=== PATIENT | male | born 2000 | race African-American/Black ===

== ENCOUNTER 2023-07-29 11:13 | Emergency (ER) | payer MEDICAID, SELFPAY ==
[2023-07-29 11:13] VITALS: BP 117/92; PULSE 70; RESP 17; TEMP 36.6; O2SAT 99
--- NOTE | 2023-07-29 11:22 | ECG_ITS ---
SEE SCANNED COPY FOR CONFIRMED REPORT MTDD
--- NOTE | 2023-07-29 11:23 | ED.ALLEREA ---
HPI - Allergic Reaction General Stated complaint: ALLERGIC REACTION Time Seen by Provider: 07/29/23 11:22 Source: patient and EMS Mode of arrival: ambulatory Limitations: no limitations History of Present Illness HPI narrative: this is a 23-year-old male with no significant past medical history presents via EMS after he felt that he had an allergic reaction and having some bumps on the left forearm, felt like he had palpitations and was lightheaded initially did receive Benadryl via EMS, currently no shortness of breath no chest pain no nausea vomiting no abdominal pain. MD complaint: allergic reaction Onset (ago): hour(s) Exposure: unknown Related Data Home Medications Medication Instructions Recorded Confirmed No Home Medications 07/29/23 07/29/23 Allergies Allergy/AdvReac Type Severity Reaction Status Date / Time No Known Allergies Allergy Verified 07/29/23 11:29 Review of Systems Review of Systems: All systems reviewed & are unremarkable except as noted in HPI and below PMFSH Past Medical History Medical History Patient denies medical problems Exam Const: General: healthy appearing and no acute distress Nutritional Appearance: well nourished Orientation/consciousness: patient oriented x3 Limitations: no limitations HENMT: Head: normal to inspection Neck: Neck: normal visual inspection, no lymphadenopathy and no meningeal signs Chest: Chest palpation & inspection: normal inspection of the chest Resp: Effort & Inspection: normal respiratory effort Auscultation: clear to auscultation bilaterally Cardio: Rate: regular rate Rhythm: regular rhythm GI: GI Palp: Yes Soft to palpation Auscultation: normal bowel sounds Skin: Wounds: wounds noted Neuro: General: patient oriented x3 Cranial nerves: Yes Nystagmus not present Extrem: General: normal to inspection Course Course Emergency Course: EKG obtained shows normal sinus rhythm otherwise patient doing well and can discharge with follow-up with his primary. Critical Care Time Critical Care Time Critical Care Time: No Discharge Plan Discharge Clinical Impression: Allergic reaction Qualifiers: Encounter type: initial encounter Qualified Code(s): T78.40XA - Allergy, unspecified, initial encounter Patient Disposition: Home, Self-Care Condition: Stable Instructions: Antibiotic Form, General Allergic Reaction (ED) Additional Instructions: advised to take Claritin [id number] and can take Benadryl as needed and follow up with primary if symptoms persist or worsen. Follow-up/Referrals: UNKNOWN,DOCTOR [Primary Care Provider] - Time of Disposition: 11:28
[2023-07-29 11:50] VITALS: BP 135/78; PULSE 70; RESP 17; TEMP 36.6; O2SAT 99
== END 2023-07-29 11:50 | disposition home or self-care (01) ==
PROVIDERS: Emergency Provider Emergency Medicine
DX: T78.40XA Allergy, unspecified, initial encounter (principal); X58.XXXA Exposure to other specified factors, initial encounter
CPT/HCPCS: 93005; 99283